=== PATIENT | male | born 1950 | race Caucasian/White ===

== ENCOUNTER 2023-03-28 10:20 | Emergency (ER) | payer MEDICARE, OTHER ==
[2023-03-28] MEDS ORDERED: predniSONE 20 MG Tab PO STA (10:54)
== END 2023-03-28 11:15 | disposition home or self-care (01) ==
LOC: JD.ED 10:20
DX: M54.42 Lumbago with sciatica, left side (principal); I48.91 Unspecified atrial fibrillation; Z87.891 Personal history of nicotine dependence
CPT/HCPCS: 99283; J7512